=== PATIENT | male | born 1990 | race Two or more races ===

== ENCOUNTER 2022-04-30 05:30 | Day surgery (SDC) | payer OTHER ==
[2022-04-28 16:12] VITALS: BMI 25.7
[2022-04-30] MEDS ORDERED: ACETAMINOPHEN INJECTION 100 ML IVPB ONE (06:48)
[2022-04-30] MEDS ORDERED: ROCURONIUM BROMIDE 50 MG/5 ML SYRINGE ONE (09:46)
[2022-04-30] MEDS ORDERED: LIDOCAINE HCL/PF (2%) 40 MG/2 ML VIAL ONE (09:46)
[2022-04-30] MEDS ORDERED: PROPOFOL 20 ML ONE (09:46)
[2022-04-30] MEDS ORDERED: LIDOCAINE 1%/EPI 1:100000 (20 ML MULTI DOSE VIAL) ONE (09:51)
[2022-04-30] MEDS ORDERED: MIDAZOLAM HCL 2 MG/2 ML SINGLE DOSE VIAL ONE (09:52)
[2022-04-30] MEDS ORDERED: ceFAZolin SODIUM 1 GM VIAL ONE (09:53)
[2022-04-30] MEDS ORDERED: SODIUM CHLORIDE 0.9% P/F 10 ML VIAL IJ ONE (09:53)
[2022-04-30] MEDS ORDERED: DEXAMETHASONE SOD PHOSPHATE 4 MG/1 ML VIAL ONE (09:53)
[2022-04-30] MEDS ORDERED: ceFAZolin SODIUM 1 GM VIAL IVPB ONE (10:25)
[2022-04-30] MEDS ORDERED: LIDOCAINE 1%/EPI 1:100000 (20 ML MULTI DOSE VIAL) IJ ONE ×4 (10:27→11:30)
[2022-04-30] MEDS ORDERED: ONDANSETRON 4 MG/2 ML VIAL ONE (10:40)
[2022-04-30] MEDS ORDERED: GLYCOPYRROLATE 0.2 MG/1 ML VIAL ONE (10:56)
[2022-04-30] MEDS ORDERED: NEOSTIGMINE METHYLSULFATE 0.5 MG/ML - 10 ML MDV ONE (10:56)
[2022-04-30] MEDS ORDERED: ONDANSETRON 4 MG/2 ML VIAL IVPUSH PRN (12:05)
[2022-04-30] MEDS ORDERED: oxyCODONE HCL 5 MG TABLET PO PRN ×2 (12:05)
[2022-04-30] MEDS ORDERED: LACTATED RINGERS SOLUTION 1,000 ML IV SCH (12:15)
[2022-04-30 14:14] VITALS: RESP 18
[2022-04-30 16:38] VITALS: BP 120/82; PULSE 77; TEMP 98.6
== END 2022-04-30 17:14 | disposition home or self-care (01) ==
LOC: JASU-SURG 05:30
PROVIDERS: ATTEND Otolaryngology
PROC: 09BM8ZZ Excision of Nasal Septum, Via Natural or Artificial Opening Endoscopic (ICD-10-PCS; principal; 2022-04-30 10:00)
PROC: 09TL8ZZ Resection of Nasal Turbinate, Via Natural or Artificial Opening Endoscopic (ICD-10-PCS; 2022-04-30 10:00)
DX: J34.2 Deviated nasal septum (principal); J34.3 Hypertrophy of nasal turbinates
CPT/HCPCS: 88304-TC; 88311-TC; 94760